=== PATIENT | female | born 1945 | race Caucasian/White ===

== ENCOUNTER 2018-08-29 18:40 | Emergency (ER) | payer MEDICARE ==
[~2018-08-29] VITALS: Ht 157.5 cm; Wt 75.3 kg
[2018-08-29] MEDS ORDERED: GLIM2TAB29 (18:57)
[2018-08-29] MEDS ORDERED: LOSA50TA88 (18:57)
[2018-08-29] MEDS ORDERED: ATOR40TA75 PO (18:57)
[2018-08-29] MEDS ORDERED: METF750T (18:57)
[2018-08-29] MEDS ORDERED: NS 500 ML IV ONE (19:15)
[2018-08-29] MEDS ORDERED: LIDOCAINE 1% MDV 20ML VIAL SC ONE (19:15)
[2018-08-29] MEDS ORDERED: LIDOCAINE 1% MDV INJ 50 ML VIAL SC ONE (19:15)
[2018-08-29] MEDS ORDERED: MORPHINE 4 MG/ML 1ML VIAL/SYRINGE (J2270) IV ONE ×2 (19:15→20:30)
--- NOTE | 2018-08-29 21:12 | REP ---
Portable left wrist four views History: Fracture There is a comminuted fracture of the distal radius. There is a fracture of the distal ulna. There is posterolateral dislocation of the distal fracture fragment of the radius . Impression : Fracture dislocation of the distal radius and ulna. Electronically Signed by Sharath Grande MD 08/29/2018 09:03 P
[2018-08-29] MEDS ORDERED: NORCO 5/325MG TABLET (BULK FOR ED) PO ONE (21:30)
[2018-08-29 21:38] VITALS: BP 161/75
--- NOTE | 2018-08-29 22:20 | REP ---
Portable left wrist at three views History: Fracture Comparison: 07:28 p.m. 08/29/2018 A plaster cast is present obscuring detail. There is a comminuted fracture of the distal radius. There is a fracture of the distal ulna. There is no definite dislocation. Impression: Fractures of the distal radius and ulna. There appears to be anatomic alignment through plaster. Electronically Signed by Sharath Grande MD 08/29/2018 10:13 P
--- NOTE | 2018-08-30 01:19 | CR ---
DATE OF CONSULTATION: 08/29/2018 CHIEF COMPLAINT: Left wrist pain. HISTORY OF PRESENT ILLNESS: Jackie Jaimes is a 73-year-old right hand dominate female who sustained a mechanical fall onto her left wrist this afternoon. She had pain and deformity and was seen in the emergency room at [place] where she was found to have a significantly displaced distal radius fracture with an ulna fracture as well. She was transferred to [facility] for closed reduction. The patient states she has some slight tingling in her left index finger otherwise denies any weakness or numbness in her hand. PAST MEDICAL HISTORY: Hypertension and diabetes. PHYSICAL EXAMINATION: General, well appearing, alert and oriented in no acute distress. Musculoskeletal: In the left wrist there is an obvious deformity. The skin is intact. Normal sensation to light touch in the medial, ulnar and radial distribution. Mild swelling. Palpable radial pulse. IMAGING: Radiographs from [facility] show a significantly displaced left distal radius fracture and ulnar fracture. IMPRESSION: Left distal radius and ulnar fracture. PLAN: After informed consent was obtained a closed reduction was performed using C-Arm of the left distal radius. The patient was placed into a long arm cast. She was neurovascularly intact post reduction. Post reduction films are satisfactory. I will see her back in the office Friday.
--- NOTE | 2018-08-30 08:03 | REP ---
AP lateral left wrist three views History: Fracture Comparison: 07:26 p.m. 08/29/2018 Three portable radiographs were obtained with a C-arm. A plaster cast is present obscuring detail. The patient is status post reduction of fracture dislocation of the the wrist. There are fractures of the distal radius and ulna. There is anatomic alignment through plaster. Impression: The patient is status post reduction of a fracture dislocation. There is anatomic alignment through plaster. Electronically Signed by Sharath Grande MD 08/30/2018 07:54 A
== END 2018-08-29 21:58 | disposition home or self-care (01) ==
LOC: M ED 18:40
DX: S52.502A Unspecified fracture of the lower end of left radius, initial encounter for closed fracture (principal); S52.602A Unspecified fracture of lower end of left ulna, initial encounter for closed fracture; W19.XXXA Unspecified fall, initial encounter; Y92.89 Other specified places as the place of occurrence of the external cause; E11.9 Type 2 diabetes mellitus without complications; I10 Essential (primary) hypertension; Z79.899 Other long term (current) drug therapy; Z79.84 Long term (current) use of oral hypoglycemic drugs
CPT/HCPCS: 25605; 73100; 73110; 96361; 96374; 96376; 99284; J2270

== ENCOUNTER → 2018-11-17 | Outpatient (REF) | payer MEDICARE ==
[~2018-11-17] MED LIST: ATOR40TA75 PO; D200CAP3 PO; GLIM2TAB29 PO; LOSA50TA88 PO; METF500T13 PO; METF750T36; METF750T36 PO; OXYC1TAB23 PO
== END ==
LOC: M LABDRAW1 13:51
PROVIDERS: ATTEND Physician Assistant Medical
DX: S52.592D Other fractures of lower end of left radius, subsequent encounter for closed fracture with routine healing (principal); W18.30XD Fall on same level, unspecified, subsequent encounter; Y92.009 Unspecified place in unspecified non-institutional (private) residence as the place of occurrence of the external cause

== ENCOUNTER → 2018-12-03 | Outpatient (CLI) | payer MEDICARE ==
[2018-12-03 16:12] LABS: HEMATOCRIT 40.7 % (36.0-47.0); HEMOGLOBIN 13.6 g/dl (12.0-15.5); MEAN CORPUSCULAR HEMOGLOBIN 30.4 pg (27.0-33.0); MEAN CORPUSCULAR HGB CONC 33.4 g/dl (32.0-36.5); MEAN CORPUSCULAR VOLUME 90.8 fl (80.0-96.0); PLATELET COUNT, AUTOMATED 278 10^3/uL (150-450); RED BLOOD COUNT 4.48 10^6/uL (4.00-5.40)
[2018-12-03 16:19] LABS: INR 0.95; PROTHROMBIN TIME 12.4 SECONDS (11.8-14.0)
[2018-12-03 16:40] LABS: ALBUMIN 3.9 GM/DL (3.2-5.2); ALT/SGPT 37 U/L (12-78); BILIRUBIN,TOTAL 0.3 MG/DL (0.2-1.0); BLOOD UREA NITROGEN 8 MG/DL (7-18); CALCIUM LEVEL 9.4 MG/DL (8.8-10.2); CARBON DIOXIDE LEVEL 32 MEQ/L (21-32); CHLORIDE LEVEL 106 MEQ/L (98-107); CREATININE FOR GFR 0.64 MG/DL (0.55-1.30); GLOMERULAR FILTRATION RATE > 60.0 (>39); GLUCOSE, FASTING 81 MG/DL (70-100); POTASSIUM SERUM 3.7 MEQ/L (3.5-5.1); SODIUM LEVEL 143 MEQ/L (136-145); TOTAL PROTEIN 7.7 GM/DL (6.4-8.2)
--- NOTE | 2018-12-04 16:51 | ECGEPIP ---
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 Electronically Signed on 12-04-2018 16:51:14 EDT by Antione Naqvi
== END ==
LOC: M LAB 15:19
PROVIDERS: ATTEND Orthopaedic Surgery Hand Surgery
DX: Z01.818 Encounter for other preprocedural examination (principal); S52.592D Other fractures of lower end of left radius, subsequent encounter for closed fracture with routine healing; W18.30XD Fall on same level, unspecified, subsequent encounter; Y92.009 Unspecified place in unspecified non-institutional (private) residence as the place of occurrence of the external cause

== ENCOUNTER 2018-12-18 11:04 | Day surgery (SDC) | payer MEDICARE ==
[~2018-12-18] VITALS: Ht 157.5 cm; Wt 75.3 kg
[~2018-12-18 11:04] MED LIST changes: +LIDOCAINE 1% MDV 20ML VIAL SQ PRN; +LR 1,000 ML IV ONE; +ceFAZolin SOD 2 GM in IV 1 EA IV ONE
[2018-12-18] MEDS ORDERED: dexameTHASONE 10 MG/1 ML VIAL PRES.FREE (J1100) ONE (11:05)
[2018-12-18] MEDS ORDERED: ROPIvacaine 0.5% 30 ML INJECTION (J2795 PER 1MG) ONE (11:05)
[2018-12-18] MEDS ORDERED: SCOPOLAMINE 1MG TRANSDERMAL PATCH TOP ONE (12:00)
[2018-12-18] MEDS ORDERED: MIDAZOLAM INJ 2 MG/2 ML VIAL (J2250) As Ordered ONE ×2 (12:10→13:04)
[2018-12-18] MEDS ORDERED: fentaNYL 100 MCG/2 ML INJECTION (J3010) As Ordered ONE ×2 (12:10→15:22)
[2018-12-18] MEDS ORDERED: SCOPOLAMINE 1MG TRANSDERMAL PATCH As Ordered ONE (13:00)
[2018-12-18] MEDS ORDERED: MIDAZOLAM INJ 2 MG/2 ML VIAL (J2250) IV ONE (13:00)
[2018-12-18] MEDS ORDERED: fentaNYL 100 MCG/2 ML INJECTION (J3010) IV ONE (13:00)
[2018-12-18] MEDS ORDERED: LIDOCAINE 2% INJ 100 MG/5 ML SDV (FOR ANES.) As Ordered ONE (13:03)
[2018-12-18] MEDS ORDERED: PROPOFOL 200 MG/20 ML VIAL As Ordered ONE (13:03)
[2018-12-18] MEDS ORDERED: fentaNYL 250 MCG/5 ML INJECTION (J3010) As Ordered ONE (13:03)
[2018-12-18] MEDS ORDERED: BUPIVACAINE/EPIN 0.25% 30 ML VIAL As Ordered ONE (13:14)
[2018-12-18] MEDS ORDERED: KETOROLAC 60 MG/2 ML VIAL (J1885) As Ordered ONE (14:15)
[2018-12-18] MEDS ORDERED: diphenhydrAMINE INJ 50MG/ML VIAL (J1200) As Ordered ONE (14:15)
[2018-12-18] MEDS ORDERED: ONDANSETRON 4MG/2ML VIAL (J2405) As Ordered ONE (14:15)
[2018-12-18] MEDS ORDERED: METOCLOPRAMIDE INJ 10MG/2ML VIAL (J2765) As Ordered ONE (14:15)
[2018-12-18] MEDS: fentaNYL 100 MCG/2 ML INJECTION (J3010) IV PRN ×4 (15:21→15:44)
[2018-12-18] MEDS ORDERED: LR 1,000 ML IV SCH (15:30)
[2018-12-18] MEDS ORDERED: ONDANSETRON 4MG/2ML VIAL (J2405) IV PRN (15:30)
--- NOTE | 2018-12-18 15:40 | REP ---
Left wrist series: 30 views. History: Intraoperative imaging. Left distal radius nonunion. 88.7 seconds of fluoroscopy time is reported. Findings: A sequence of 30 last image hold fluoroscopically obtained spot radiographs of the wrist document operative manipulation and screw plate fixation distal radius. Electronically Signed by Keanu Bell MD 12/18/2018 04:08 P
[2018-12-18] MEDS ORDERED: oxyCODONE 5MG TAB As Ordered ONE (15:51)
[2018-12-18] MEDS ORDERED: oxyCODONE 5MG TAB PO ONE (16:00)
[2018-12-18] MEDS ORDERED: MORPHINE 4 MG/ML 1ML VIAL/SYRINGE (J2270) As Ordered ONE (16:01)
[2018-12-18] MEDS ORDERED: MORPHINE 4 MG/ML 1ML VIAL/SYRINGE (J2270) IV PRN (16:31)
[2018-12-18] MEDS ORDERED: oxyCODONE 5MG TAB PO PRN ×2 (16:31)
[2018-12-18 17:20] VITALS: BP 144/67
--- NOTE | 2018-12-18 18:26 | RO ---
DATE OF PROCEDURE: 12/18/2018 PREPROCEDURE DIAGNOSIS: Left distal radius malunion. POSTPROCEDURE DIAGNOSIS: Left distal radius malunion. PROCEDURE: 1. Left radius osteotomy, malunion correction of the radius 2. Open reduction internal fixation distal radius. 3. Reconstruction procedure of the wrist. SURGEON: Dr. Won Quinn HOME CARE MANAGER RN: Michael Jorgensen who was instrumental to retraction during mo portions of the procedure. ANESTHESIA: General. INDICATIONS: A 73-year-old female. She has had progressive pain and swelling after she had a fracture back in early August. She was managed nonoperatively at which point the fracture lost reduction and also did not appear to be healing on time. Due to continued pain, we consented for a revision procedure. The patient expressed understanding and agreement to all the risks and benefits, including but not limited to infection, malunion, nonunion, and damage to surrounding structures and need for further surgery. PREOPERATIVE ANTIBIOTICS: 2 grams of Ancef. BLOOD LOSS: Minimal. TOURNIQUET TIME: 68 minutes. COMPLICATIONS: None. DESCRIPTION OF PROCEDURE: The patient was rolled back to the operating room (OR) where she underwent general anesthesia at which point we prepped and draped the left arm in the usual fashion. Once time-out was had confirming side, site, patient and surgery, we made a longitudinal incision along the flexor carpi radialis (FCR) tendon. Careful to coagulate superficial vessels. We then incised the FCR sheath, retracted it ulnarly at which point we incised the deep portion of the sheath exposing extensor pollicis longus (EPL), which was retracted ulnarly as well. We then elevated off pronator quadratus in the fracture site. At this point, we encountered significant fracture callus in the distal radius fracture. At which point, we isolated brachioradialis and released it from its distal insertion. We then used osteotomes to mobilize the distal segment. Once this was adequately mobilized, we rongeured some of the fracture plane to allow an accurate reduction and kept these bone fragments for bone graft. We then used the 4-hole variable angle Synthes locking plate. We placed the four distal locking screws under mini C-arm guidance at which point we then used the plate in an indirect method to reduce the fracture, clamping it down to bone with pointed reduction clamps. We confirmed on AP and lateral mini C-arm x-rays that this was adequate reduction. We then used cortical screws to load the plate in compression. We were able to watch under direct visualization as the fracture plane was directly reduced and compressed. At which point, we did additional screw and compression mode and then two most proximal locking. At which point, we then elevated the tissue radially over the fracture site to expose the gap that was now created in the dorsal aspect. We used a combination of autograft from the patient's own fracture callus along with crushed cancellous autograft, approximately 5 mL to fill the void. At this point, we took final films, confirming adequate (dictation cut off) and reduction. We were very happy with this. We thoroughly irrigated the wound, the pronator quadratus closed and the subcutaneous tissue both with #3-0 Vicryl. We then sutured the skin with #3-0 nylon, placing Adaptic gauze and Kerlix and a volar brace with Husam over top. The patient's tourniquet was then let down, approximately 68 minutes. The patient was then extubated and taken in stable condition to the post-anesthesia care unit (PACU). POSTOPERATIVE PLAN: The patient will be non-weightbearing on the left upper extremity. We will see her in the office in approximately 2 weeks for suture removal, clinical. At which point, we will convert her to a removable brace. Still no heavy lifting, pushing, pulling until approximately 6-8 weeks afterwards as we monitor her fracture at that time both clinically and with x-ray.
== END 2018-12-18 17:40 | disposition home or self-care (01) ==
LOC: M SDC 11:04
PROVIDERS: ATTEND Orthopaedic Surgery Hand Surgery
DX: S52.502P Unspecified fracture of the lower end of left radius, subsequent encounter for closed fracture with malunion (principal); I10 Essential (primary) hypertension; E11.9 Type 2 diabetes mellitus without complications; E78.00 Pure hypercholesterolemia, unspecified; K21.9 Gastro-esophageal reflux disease without esophagitis; Z88.6 Allergy status to analgesic agent; Z79.899 Other long term (current) drug therapy; Z79.84 Long term (current) use of oral hypoglycemic drugs; Z78.0 Asymptomatic menopausal state; X58.XXXA Exposure to other specified factors, initial encounter; Y93.9 Activity, unspecified; Y92.9 Unspecified place or not applicable; Y99.9 Unspecified external cause status
CPT/HCPCS: 25607; 76000; C1713; C1762; J0690; J1100; J1200; J1885; J2250; J2270; J2405; J2765; J2795; J3010

== ENCOUNTER → 2019-02-26 | Outpatient (CLI) | payer MEDICARE ==
[~2019-02-26] MED LIST changes: -LIDOCAINE 1% MDV 20ML VIAL SQ PRN; -LR 1,000 ML IV ONE; -ceFAZolin SOD 2 GM in IV 1 EA IV ONE
--- NOTE | 2019-02-26 15:59 | REP ---
MRI LEFT FOREARM WITHOUT CONTRAST: Multiple sequences obtained in the axial, coronal and sagittal planes. The patient had a recent placement of metallic internal fixation in the distal radius. This was performed 12/18/2018. T1 and T2-weighted sequences were obtained, including metallic artifact suppression sequences. However, there is persistent blooming artifact from the metallic internal fixation in the distal radius. This somewhat limits visualization of the soft tissues of the forearm. The patient reports a palpable lump of the distal forearm near the wrist. The area is marked on the skin with two markers at the proximal and distal extent of the palpable lump. The visualized underlying superficial soft tissues appear grossly unremarkable. No significant mass or fluid collection is seen in this region. Further evaluation could be made with ultrasound if desired. Electronically Signed by Shaan Crawford MD 02/26/2019 04:08 P
== END ==
LOC: M RAD 14:18
PROVIDERS: ATTEND Orthopaedic Surgery Hand Surgery
DX: R22.32 Localized swelling, mass and lump, left upper limb (principal)